=== PATIENT | male | born 1930 | race Caucasian/White ===

== ENCOUNTER 2017-01-27 14:06 | Emergency (ER) | payer MEDICARE, OTHER ==
[~2017-01-27] VITALS: Ht 185.4 cm; Wt 72.9 kg
[~2017-01-27 14:06] MED LIST: ASPI81TA2 PO; BISA5TAB12 PO; CARB15DR82 BOTH EYES; CARB1TAB23 PO; CLOP75TA PO; DOCU-175 PO; GABA-338 PO; LISI20TA PO; METO25TA27 PO; MULT-933 PO; OXCA300T18 PO; POLY17PO6 PO; PRAV20TA4 PO; SENN-156 PO; VITA1TAB21 PO
[2017-01-27 14:10] VITALS: Ht 185.4 cm; Wt 72.9 kg
--- OUTSIDE RECORDS SUMMARY | 2017-01-27 14:10 | XMS REPORT | Continuity of Care Document ---
Author Author [facility] Organization [facility] Address Unknown Phone Unavailable Support Name Relationship Address Phone DAO BAIN DO Caregiver [address] [place] [phone] MARAL COLLADO MD Caregiver [address] [place] [address] [place] [address] MARLO QUIROGA MD Caregiver [address] [place] [address] [place] [phone] CARLOS MCLEAN Next Of Kin [address] [place] [address] Insurance Providers Payer Name Policy Number Subscriber Name Relationship Medicare [id number] Dm Mclean 17 Self [employer] [id number] Dm Mclean 18 Self Advance Directives Directive Response Recorded Date/Time Advanced Directives Type None 01/20/15 6:10am Ordered Resuscitation Status Do Not Resuscitate 01/20/15 10:41am Resuscitation Documents on File N UNSURE 01/20/15 6:33am Chief Complaint and Reason for Visit Chief Complaint NAUSEA/VOMITING Reason for Visit Nausea & vomiting Parkinson disease Chronic back pain Total bilirubin, elevated Intractable nausea and vomiting Gait instability HTN (hypertension) CAD (coronary artery disease) Dyslipidemia Constipation Problems Medical Problems Problem Onset Date Status Nausea & vomiting Unknown Active Headache Unknown Active Nausea & vomiting Unknown Active Nausea & vomiting Unknown Active Parkinson disease Unknown Active Chronic back pain Unknown Active Total bilirubin, elevated Unknown Active Intractable nausea and vomiting Unknown Active Gait instability Unknown Active HTN (hypertension) Unknown Active CAD (coronary artery disease) Unknown Active Dyslipidemia Unknown Active Constipation Unknown Active Medications Medication Dose Route Sig Days/Qty Instructions Order Date Discontinued Date Status Hydralazine Hcl 25 Mg PO DAILY 07/16/09 Active Carbidopa/Levodopa 1 Tab.sa PO THREE TIMES A DAY 07/16/09 Active Aspirin 81 Mg PO DAILY 07/16/09 Active Metoprolol Succinate 12.5 Mg PO DAILY 07/16/09 Active Pravastatin Sodium 40 Mg PO BEDTIME 07/16/09 Active Ondansetron 4 Mg PO Q6H/0300,0900,1500,2100 PRN NAUSEA &/OR VOMITING 15 Qty Oral disintegrating tablet 01/18/15 Active Polyethylene Glycol 3350 17 Gm PO DAILY For CONSTIPATION 30 Days Active Scopolamine 1 Removal TD Q3D 5 Qty 01/21/15 Active Ondansetron HCl 4 Mg PO Every 6 Hours PRN NAUSEA 15 Qty 01/21/15 Active Social History Social History Problem Response Recorded Date/Time Hx Alcohol Use No 01/20/2015 12:43am Has the pt used tobacco in the last 12 months No 01/20/2015 6:34am Tobacco Usage none 01/20/2015 10:58am Query Response Start Date Stop Date Smoking Status Never smoker Hospital Discharge Instructions Instructions: Care Instructions: Reason for Hospitalization: Intractable nausea and vomitting I was in the hospital because (patient own words): "NAUSEA, HEADACHE, AND CHILLS" Discharge Diet: [place] diet-increase as able Discharge Activity: As tolerated Follow Up Appointments: FOLLOW UP WITH DR. QUIROGA IN HIS OFFICE ON 02/05/2015 AT 8:30 AM TO CHECK CMP. Patient Instructions: Remove Scoplamine patch on - continue to use only if increased nausea. Benifiber daily to help stools Miralax daily to help stools - hold with loose stool Condition at time of discharge: Good - Your incisions have been covered with Steri-Strips (tape). Leave the Steri-Strips in place until they fall off on their own. - You may shower - no tub baths or swimming for 2 weeks. Notify Physician If: - Your pain is not adequately controlled. - You have persistent nausea or vomiting for more than 24 hours. - You have a fever over 101.5 degrees. - You develop redness, swelling, increasing pain, excessive bleeding, or excessive/foul smelling drainage at your incision site. - You have difficulty breathing. During office hours, call [phone]. After hours, please call [facility] at [phone] and have the card game operator page Dr. Arvizu or the covering surgeon. *In the event of an emergency, seek medical care at the nearest emergency room.* Condition at time of discharge: Good Plan of Care Discharge Date 01/21/15 1:55pm Disposition 01 DISCHARGED HOME, SELF-CARE Instructions/Education Provided Nausea and Vomiting-Adult Prescriptions See Medications Section Functional Status Query Response Date Recorded Physical Hygiene Self January 20, 2015 12:43am Disabilities None January 20, 2015 6:10am Devices Used None January 20, 2015 6:10am Dressing Self January 20, 2015 12:43am Ambulation Self January 20, 2015 12:43am Diet Self January 20, 2015 12:43am Mental Status Alert Oriented January 20, 2015 5:37am Disabilities None January 20, 2015 6:10am Devices Used None January 20, 2015 6:10am Physical Hygiene Self January 20, 2015 12:43am Dressing Self January 20, 2015 12:43am Ambulation Self January 20, 2015 12:43am Diet Self January 20, 2015 12:43am Allergies, Adverse Reactions, Alerts Allergen Type Severity Reaction Status Last Updated warfarin sodium Allergy Unknown NAUSEA Active 01/19/15 Immunizations Name Given Type Hx Influenza Vaccination Y AUGUST 2014 Historical Hx Pneumococcal Vaccination Y "SEVERAL YEARS AGO" Historical Hx Influenza Vaccination Y AUGUST 2014 Historical Vital Signs Acute Vital Signs Vital Response Date/Time Temperature (Fahrenheit) 97.1 deg F (96.8 - 99.1) Temperature (Calculated Celsius) 36.38529 degrees C (36.0 - 37.3) Pulse Rate (adult) 43 bpm (60 - 100) Height 6 ft 1 in Weight 165 lb Body Mass Index 21.0 kg/m^2 Results Test Source Date Result Interp. Ref. Range Comments Alanine Aminotransferase (ALT/SGPT) January 20, 2015 1:05am 28 U/L N 21- 72 Albumin January 20, 2015 1:05am 3.8 G/DL N 3.5-5.0 Albumin/Globulin Ratio January 20, 2015 1:05am 1.4 RATIO N 1.1-2.2 Alkaline Phosphatase January 20, 2015 1:05am 63 U/L N 38-126 Amylase Level January 20, 2015 1:05am 36 U/L N 30-110 Anion Gap January 21, 2015 5:16am 6 MEQ/L N 5-15 Aspartate Amino Transf (AST/SGOT) January 20, 2015 1:05am 10 U/L L 17-59 BUN/Creatinine Ratio January 21, 2015 5:16am 9 RATIO N 6-26 Basophils # (Auto) January 21, 2015 5:16am 0.0 T/MM3 N 0-0.2 Basophils (%) (Auto) January 21, 2015 5:16am 0.2 % N 0-2 Blood Urea Nitrogen January 21, 2015 5:16am 8.0 MG/DL L 9-20 Calcium Level January 21, 2015 5:16am 8.2 MG/DL L 8.4-10.2 Calculated Osmolality January 21, 2015 5:16am 268 MOSM/KG N 261-280 Carbon Dioxide Level January 21, 2015 5:16am 28 MEQ/L N 22-30 Chemistry Specimen Hemolysis January 21, 2015 5:16am < 15 0-25 0-25: No Hemolysis.26-70: Slight Hemolysis - can falsely elevate K and Urine Protein. 71-285: Moderate Hemolysis - can falsely elevate K, Troponin I, CA 19-9, PTH, CSF GLucose, and Urine Protein, and can falsely decrease Phenytoin. 286-999: Gross Hemolysis - can falsely elevate K, Troponin I, CA 19-9, PTH, CSF Glucose, and Urine Protine, and can falsely decrease Phenytoin. Recommend specimen recollection. Chloride Level January 21, 2015 5:16am 107 MEQ/L DN 98-107 Creatinine January 21, 2015 5:16am 0.9 MG/DL N 0.8-1.5 Eosinophils # (Auto) January 21, 2015 5:16am 0.1 T/MM3 N 0-0.5 Eosinophils (%) (Auto) January 21, 2015 5:16am 1.2 % N 0-4 Globulin January 20, 2015 1:05am 2.7 G/DL N 2.4-3.6 Glomerular Filtration Rate Calc January 21, 2015 5:16am 80 - Glucose Level January 21, 2015 5:16am 84 MG/DL N 75-110 Hematocrit January 21, 2015 5:16am 32.8 % L 41-53 Hemoglobin January 21, 2015 5:16am 11.6 GM/DL DL 13.5-17.5 Icterus Index January 21, 2015 5:16am < 2 0-7 Immature Granulocyte # (Auto) January 21, 2015 5:16am 0.01 T/MM3 N 0.00- 0.03 Immature Granulocyte % (Auto) January 21, 2015 5:16am 0.2 % N 0.0-0.5 Lab Scanned Report January 11, 2011 10:43am LAB TEST FORM REQUEST [id number] - Lipase January 20, 2015 1:05am 45 U/L N 23-300 Lymphocytes # (Auto) January 21, 2015 5:16am 1.9 T/MM3 N 1-4.8 Lymphocytes (%) (Auto) January 21, 2015 5:16am 31.9 % N 23-45 Magnesium Level January 21, 2015 5:16am 1.8 MG/DL N 1.6-2.3 Mean Corpuscular Hemoglobin January 21, 2015 5:16am 31.6 UUG N 26-34 Mean Corpuscular Hemoglobin Concent January 21, 2015 5:16am 35.4 GM/DL N 31-37 Mean Corpuscular Volume January 21, 2015 5:16am 89.4 UM3 N 80-100 Mean Platelet Volume January 21, 2015 5:16am 9.8 UM3 N 9.4-12.4 Monocytes # (Auto) January 21, 2015 5:16am 0.6 T/MM3 N 0-0.8 Monocytes (%) (Auto) January 21, 2015 5:16am 10.5 % H 0-9.0 Neutrophils # (Auto) January 21, 2015 5:16am 3.4 T/MM3 N 1.8-7.7 Neutrophils (%) (Auto) January 21, 2015 5:16am 56.0 % N 33-66 Platelet Count January 21, 2015 5:16am 198 T/MM3 N 130-400 Potassium Level January 21, 2015 5:16am 3.4 MEQ/L L 3.6-5 Prealbumin January 20, 2015 1:05am 15.3 MG/DL L 17.6-36.0 COMMENT may use blood in lab Prothromb Time International Ratio January 18, 2015 4:13pm 1.19 H 0.81- 1.09 THERAPUTIC RANGE=2.00-3.00 FOR ANTI-THROMBOSIS THERAPUTIC RANGE=2.50- 3.50 FOR IMPLANTED VALVE RDW Standard Deviation January 21, 2015 5:16am 39.3 FL N 36.9-50.2 Red Blood Count January 21, 2015 5:16am 3.67 M/MM3 L 4.50-5.90 Sodium Level January 21, 2015 5:16am 141 MEQ/L N 134-144 Thyroid Stimulating Hormone (TSH) January 20, 2015 1:05am 0.66 MIU/L N 0.47-4.68 COMMENT may use blood in lab Total Bilirubin January 20, 2015 1:05am 2.70 MG/DL H 0.20-1.30 Total Protein January 20, 2015 1:05am 6.5 G/DL N 6.3-8.2 Troponin I January 20, 2015 1:05am < 0.012 ng/ml 0-0.12 Turbidity January 21, 2015 5:16am < 20 0-20 Urinalysis Comment January 20, 2015 3:17am Microscopic not ind. - Has specimen been collected/obtained? Y Urine Bilirubin January 20, 2015 3:17am Negative - Has specimen been collected/obtained? Y Urine Blood January 20, 2015 3:17am Negative - Has specimen been collected/obtained? Y Urine Collection Type January 20, 2015 3:17am Cleancatch-midstream - Has specimen been collected/obtained? Y Urine Color January 20, 2015 3:17am Yellow - Has specimen been collected/obtained? Y Urine Glucose (UA) January 20, 2015 3:17am Negative - Has specimen been collected/obtained? Y Urine Ketones January 20, 2015 3:17am Trace H - Has specimen been collected/obtained? Y Urine Leukocyte Esterase January 20, 2015 3:17am Negative - Has specimen been collected/obtained? Y Urine Nitrite January 20, 2015 3:17am Negative - Has specimen been collected/obtained? Y Urine Protein January 20, 2015 3:17am Negative - Has specimen been collected/obtained? Y Urine Specific [place] January 20, 2015 3:17am 1.025 - Has specimen been collected/obtained? Y Urine Turbidity January 20, 2015 3:17am Clear - Has specimen been collected/obtained? Y Urine Urobilinogen January 20, 2015 3:17am 1.0 EU/DL - Has specimen been collected/obtained? Y Urine pH January 20, 2015 3:17am 6.0 - Has specimen been collected/ obtained? Y White Blood Count January 21, 2015 5:16am 6.0 T/MM3 N 4.5-11.0 Name: DM MCLEAN Unit #: [id number] : [id number] Sex: M Loc / Svc: SRG DOS: 01/19/15 Signed Report #: [id number] DIAGNOSTIC IMAGING REPORT TYPE OF EXAM: KUB W/UPRIGHT Dictated By: ALLIE YANEZ MD Indication: ITS.REASON: Nausea and vomiting KUB W/UPRIGHT: Comparison: None Findings: The visualized lung bases are clear. Implanted electrode stimulator leads seen projecting over the spine. Poststernotomy changes also noted. The bowel gas pattern is nonobstructive and nonspecific. Mild stool in the colon. Some degenerative changes in the spine and hips. No free air identified. Impression: Nonobstructive nonspecific bowel gas pattern. . Procedures No known history of procedures. Encounters Encounter Location Date/Time Admitted Inpatient [facility] 01/20/15 5:20am Departed Emergency Room [facility] 01/18/15 3:09pm Recent Diagnosis Nausea & vomiting Parkinson disease Chronic back pain Total bilirubin, elevated Intractable nausea and vomiting Gait instability HTN (hypertension) CAD (coronary artery disease) Dyslipidemia Constipation
--- OUTSIDE RECORDS SUMMARY | 2017-01-27 14:12 | XMS REPORT | Continuity of Care Document ---
Author Author [facility] Organization [facility] Address Unknown Phone Unavailable Support Name Relationship Address Phone DAO BAIN Caregiver [facility] [address] [place] [address] MARLO QUIROGA MD Caregiver [address] [place] [address] [place] [phone] CARLOS MCLEAN Next Of Kin [address] [place] [address] Insurance Providers Payer Name Policy Number Subscriber Name Relationship Medicare [id number] Dm Mclean 17 Self [employer] [place] [id number] Dm Mclean 18 Self Advance Directives Directive Response Recorded Date/Time Advanced Directives Type None 01/25/15 5:34am Chief Complaint and Reason for Visit Chief Complaint Nausea,Vomiting,Diarrhea Reason for Visit Nausea & vomiting Problems Medical Problems Problem Onset Date Status [...] Active Dyslipidemia Unknown Active Constipation Unknown Active Low back pain Unknown Active Low back pain Unknown Active Medications Medication Dose Route Sig Days/Qty Instructions Order Date Discontinued Date Status Aspirin 81 Mg PO DAILY 07/16/09 Active Metoprolol Succinate 12.5 Mg PO DAILY 07/16/09 Active Pravastatin Sodium 40 Mg PO BEDTIME 07/16/09 Active Scopolamine 1 Removal TD Q3D 5 Qty 01/21/15 Active Social History Social History Problem Response Recorded Date/Time Chewing Tobacco Status No 01/25/2015 6:00am Hx Substance Use No 01/25/2015 6:00am Hx Alcohol Use No 01/25/2015 6:00am Has the pt used tobacco in the last 12 months No 01/20/2015 6:34am Tobacco Usage none 01/20/2015 10:58am Query Response Start Date Stop Date Smoking Status Never smoker Hospital Discharge Instructions Instructions: Care Instructions: Reason for Hospitalization: Intractable nausea and vomitting I was in the hospital because (patient own words): "NAUSEA, HEADACHE, AND CHILLS" Discharge Diet: [place] diet-increase as able Discharge Activity: As tolerated Follow Up Appointments: FOLLOW UP WITH DR. QUIROGA IN HIS OFFICE ON 02/05/2015 AT 8:30 AM TO CHECK CMP. Patient Instructions: Remove Scoplamine patch on - continue to use only if increased nausea. Benifiber daily to help stools Miralax daily to help stools - hold with loose stool Condition at time of discharge: Good Notify Physician If: worsening SOB, fever > 101, worsening mental status General Information: n/a Condition at time of discharge: Good Pass 7 (lbs) Weight Ounces: 8.11 (oz) Dismissal Weight: 3.195 Bilirubin Level: 7.1 Plan of Care Discharge Date 01/21/15 1:55pm Disposition 02 TO OBS [facility] [place] Condition at Discharge Improved Instructions/Education Provided Nausea and Vomiting-Adult Prescriptions See Medications Section Referrals MARLO QUIROGA MD Functional Status Query Response Date Recorded Physical Hygiene Self January 25, 2015 6:00am Disabilities Visual January 25, 2015 6:00am Devices Used Glasses January 25, 2015 6:00am Dressing Self January 25, 2015 6:00am Ambulation Self January 25, 2015 6:00am Diet Self January 25, 2015 6:00am Mental Status Alert Oriented January 25, 2015 6:00am Disabilities Visual January 25, 2015 6:00am Devices Used Glasses January 25, 2015 6:00am Physical Hygiene Self January 25, 2015 6:00am Dressing Self January 25, 2015 6:00am Ambulation Self January 25, 2015 6:00am Diet Self January 25, 2015 6:00am Allergies, Adverse Reactions, Alerts Allergen Type Severity Reaction Status Last Updated warfarin sodium Allergy Unknown NAUSEA Active 01/25/15 Immunizations Name Given Type Hx Influenza Vaccination Y AUGUST 2014 Historical Hx Pneumococcal Vaccination Y "SEVERAL YEARS AGO" Historical Hx Influenza Vaccination Y AUGUST 2014 Historical Vital Signs Acute Vital Signs Vital Response Date/Time Temperature (Fahrenheit) 97.0 deg F (96.8 - 99.1) Temperature (Calculated Celsius) 36.69004 degrees C (36.0 - 37.3) Pulse Rate (adult) 57 bpm (60 - 100) Respiratory Rate 16 breaths/min (10 - 20) O2 Sat by Pulse Oximetry 95 % (90 - 100) Blood Pressure 144/67 mm Hg Height 6 ft 1 in Weight 166 lb Body Mass Index 21.0 kg/m^2 Results Test Source Date Result Interp. Ref. Range Comments Alanine Aminotransferase (ALT/SGPT) January 25, 2015 7:23am 33 U/L N 21- 72 Albumin January 25, 2015 7:23am 3.4 G/DL L 3.5-5.0 Albumin/Globulin Ratio January 25, 2015 7:23am 1.3 RATIO N 1.1-2.2 Alkaline Phosphatase January 25, 2015 7:23am 64 U/L N 38-126 Amylase Level January 20, 2015 1:05am 36 U/L N 30-110 Anion Gap January 25, 2015 7:23am 12 MEQ/L N 5-15 Aspartate Amino Transf (AST/SGOT) January 25, 2015 7:23am 13 U/L L 17-59 BUN/Creatinine Ratio January 25, 2015 7:23am 10 RATIO N 6-26 Basophils # (Auto) January 25, 2015 7:23am 0.0 T/MM3 N 0-0.2 Basophils (%) (Auto) January 25, 2015 7:23am 0.3 % N 0-2 Blood Urea Nitrogen January 25, 2015 7:23am 8.0 MG/DL L 9-20 Calcium Level January 25, 2015 7:23am 8.9 MG/DL N 8.4-10.2 Calculated Osmolality January 25, 2015 7:23am 277 MOSM/KG N 261-280 Carbon Dioxide Level January 25, 2015 7:23am 28 MEQ/L N 22-30 Chemistry Specimen Hemolysis January 25, 2015 7:23am < 15 0-25 0-25: No Hemolysis.26-70: Slight [...] Phenytoin. Recommend specimen recollection. Chloride Level January 25, 2015 7:23am 105 MEQ/L N 98-107 Creatinine January 25, 2015 7:23am 0.8 MG/DL N 0.8-1.5 Eosinophils # (Auto) January 25, 2015 7:23am 0.1 T/MM3 N 0-0.5 Eosinophils (%) (Auto) January 25, 2015 7:23am 1.7 % N 0-4 Globulin January 25, 2015 7:23am 2.7 G/DL N 2.4-3.6 Glomerular Filtration Rate Calc January 25, 2015 7:23am 92 - Glucose Level January 25, 2015 7:23am 92 MG/DL N 75-110 Hematocrit January 25, 2015 7:23am 38.2 % L 41-53 Hemoglobin January 25, 2015 7:23am 13.5 GM/DL N 13.5-17.5 Icterus Index January 25, 2015 7:23am < 2 0-7 Immature Granulocyte # (Auto) January 25, 2015 7:23am 0.02 T/MM3 N 0.00- 0.03 Immature Granulocyte % (Auto) January 25, 2015 7:23am 0.3 % N 0.0-0.5 Lab Scanned Report January 11, 2011 10:43am LAB TEST FORM REQUEST [id number] - Lipase January 20, 2015 1:05am 45 U/L N 23-300 Lymphocytes # (Auto) January 25, 2015 7:23am 1.9 T/MM3 N 1-4.8 Lymphocytes (%) (Auto) January 25, 2015 7:23am 26.7 % N 23-45 Magnesium Level January 21, 2015 5:16am 1.8 MG/DL N 1.6-2.3 Mean Corpuscular Hemoglobin January 25, 2015 7:23am 32.1 UUG N 26-34 Mean Corpuscular Hemoglobin Concent January 25, 2015 7:23am 35.3 GM/DL N 31-37 Mean Corpuscular Volume January 25, 2015 7:23am 90.7 UM3 N 80-100 Mean Platelet Volume January 25, 2015 7:23am 9.0 UM3 L 9.4-12.4 Monocytes # (Auto) January 25, 2015 7:23am 0.7 T/MM3 N 0-0.8 Monocytes (%) (Auto) January 25, 2015 7:23am 9.5 % H 0-9.0 Neutrophils # (Auto) January 25, 2015 7:23am 4.5 T/MM3 N 1.8-7.7 Neutrophils (%) (Auto) January 25, 2015 7:23am 61.5 % N 33-66 Platelet Count January 25, 2015 7:23am 228 T/MM3 N 130-400 Potassium Level January 25, 2015 7:23am 3.9 MEQ/L N 3.6-5 Prealbumin January 20, 2015 1:05am 15.3 MG/DL L 17.6-36.0 COMMENT may use blood in lab Prothromb Time International Ratio January 18, 2015 4:13pm 1.19 H 0.81- 1.09 THERAPUTIC RANGE=2.00-3.00 FOR ANTI-THROMBOSIS THERAPUTIC RANGE=2.50- 3.50 FOR IMPLANTED VALVE RDW Standard Deviation January 25, 2015 7:23am 42.4 FL N 36.9-50.2 Red Blood Count January 25, 2015 7:23am 4.21 M/MM3 L 4.50-5.90 Sodium Level January 25, 2015 7:23am 145 MEQ/L H 134-144 Thyroid Stimulating Hormone (TSH) January 20, 2015 1:05am 0.66 MIU/L N 0.47-4.68 COMMENT may use blood in lab Total Bilirubin January 25, 2015 7:23am 1.70 MG/DL H 0.20-1.30 Total Protein January 25, 2015 7:23am 6.1 G/DL L 6.3-8.2 Troponin I January 20, 2015 1:05am < 0.012 ng/ml 0-0.12 Turbidity January 25, 2015 7:23am < 20 0-20 Urinalysis Comment January 25, 2015 5:47am Microscopic not ind. - Has specimen been collected/obtained? Y Urine Bilirubin January 25, 2015 5:47am Negative - Has specimen been collected/obtained? Y Urine Blood January 25, 2015 5:47am Negative - Has specimen been collected/obtained? Y Urine Collection Type January 25, 2015 5:47am Cleancatch-midstream - Has specimen been collected/obtained? Y Urine Color January 25, 2015 5:47am Yellow - Has specimen been collected/obtained? Y Urine Glucose (UA) January 25, 2015 5:47am Negative - Has specimen been collected/obtained? Y Urine Ketones January 25, 2015 5:47am Negative - Has specimen been collected/obtained? Y Urine Leukocyte Esterase January 25, 2015 5:47am Negative - Has specimen been collected/obtained? Y Urine Nitrite January 25, 2015 5:47am Negative - Has specimen been collected/obtained? Y Urine Protein January 25, 2015 5:47am Negative - Has specimen been collected/obtained? Y Urine Specific [place] January 25, 2015 5:47am 1.010 L - Has specimen been collected/obtained? Y Urine Turbidity January 25, 2015 5:47am Clear - Has specimen been collected/obtained? Y Urine Urobilinogen January 25, 2015 5:47am 0.2 EU/DL - Has specimen been collected/obtained? Y Urine pH January 25, 2015 5:47am 6.5 - Has specimen been collected/ obtained? Y Vitamin B12 Level January 20, 2015 1:05am 527 PG/ML N 239-931 COMMENT may use blood in lab White Blood Count January 25, 2015 7:23am 7.3 T/MM3 N 4.5-11.0 Name: DM MCLEAN Unit #: [id number] : [id number] Sex: M Loc / Svc: SRG DOS: 01/19/15 Signed Report #: [id number] DIAGNOSTIC IMAGING REPORT TYPE OF EXAM: KUB [...] Nonobstructive nonspecific bowel gas pattern. . Procedures Procedure Status Date Provider(s) ROUTINE VENIPUNCTURE completed 01/18/15 COMPREHEN METABOLIC PANEL completed 01/18/15 URINALYSIS AUTO W/O SCOPE completed 01/18/15 ASSAY OF AMYLASE completed 01/18/15 ASSAY OF LIPASE completed 01/18/15 COMPLETE CBC W/AUTO DIFF WBC completed 01/18/15 PROTHROMBIN TIME completed 01/18/15 EMERGENCY DEPT VISIT completed 01/18/15 Encounters Encounter Location Date/Time Departed Emergency Room [facility] 01/25/15 5:34am Discharged Inpatient [facility] 01/20/15 5:20am Departed Emergency Room [facility] 01/18/15 3:09pm Recent Diagnosis
--- OUTSIDE RECORDS SUMMARY | 2017-01-27 14:12 | XMS REPORT | Referral Summary ---
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 Role Phone Luly Jane Primary Care Physician [phone] Encounter [facility] [id number] Date(s): 12/02/16 - 12/02/16 [facility] [address] [place] [address] Discharge Diagnosis: Lower abdominal pain Discharge Diagnosis: Chronic low back pain Discharge Diagnosis: Constipation Discharge Diagnosis: CAD (coronary artery disease) Discharge Diagnosis: Abnormal weight loss Discharge Diagnosis: Ataxic gait Discharge Diagnosis: Parkinson's disease Discharge Diagnosis: Primary hypercholesterolemia Discharge Diagnosis: Benign essential hypertension Discharge Diagnosis: Spinal stenosis, lumbar region, without neurogenic claudication Discharge Disposition: 01-Home or Self Care Attending Physician: Duncan Jane MD Admitting Physician: Duncan Jane MD Vital Signs Most recent to 1 oldest [Reference Range]: Temperature Tympanic 35.7 degC [36.6-38.1 degC] *LOW* (12/02/16 10:28 AM) Peripheral Pulse 64 bpm Rate [60-100 bpm] (12/02/16 10:28 AM) Blood Pressure 136/54 mmHg [90-140/60-90 mmHg] (12/02/16 10:28 AM) Problem List Condition Effective Dates Status Health Status Informant Acquired Active spondylolisthesis (disorder)(Confirmed ) Acquired Active spondylolisthesis(Co nfirmed) Acute Active bronchitis(Confirmed ) Acute Active sinusitis(Confirmed) Coronary heart Active disease(Confirmed) Benign essential Active hypertension(Confirm ed) benign prostatic Resolved hypertrophy(Confirme d) 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 d) Bladder Active problem(Confirmed) Broken Active leg(Confirmed) Cataracts(Confirmed) Active coronary artery Resolved disease(Confirmed) CAD (coronary artery Active disease)(Confirmed) Constipation(Confirm Active ed) Disc degeneration, Active lumbar(Confirmed) Diplopia(Confirmed) Active 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 ) Dysphagia(Confirmed) Active Essential Active hypertension(Confirm ed) Headaches(Confirmed) Active Hearing Active loss(Confirmed) Hip pain(Confirmed) Active High Active cholesterol(Confirme d) hyperlipidemia(Confi Resolved rmed) hypertension(Confirm Active ed) Low back pain Active (finding)(Confirmed) Lumbago(Confirmed) Active Left lumbar Active radiculopathy(Confir med) Right lumbar Active radiculopathy(Confir med) Lumbar Active spondylosis(Confirme d) Lumbosacral Active radiculopathy(Confir med) Lumbosacral Active spondylosis without myelopathy (disorder)(Confirmed ) Macular Active degeneration(Confirm ed) Memory Active problem(Confirmed) Nausea & Active vomiting(Confirmed) Osteoarthritis(Confi Active rmed) 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) Parkinson's Active disease(Confirmed) H/O coronary artery Active bypass surgery(Confirmed) Spinal stenosis, Active lumbar region, without neurogenic claudication(Confirm ed) Lumbar Active stenosis(Confirmed) Spondylolisthesis of Active lumbar region(Confirmed) 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(Confirmed ) Thoracic or Active lumbosacral neuritis or radiculitis, unspecified(Confirme d) Thoracic or Active lumbosacral neuritis or radiculitis(Confirme d) Allergies, Adverse Reactions, Alerts Substance Reaction Severity Status Warfarin Sodium Active Medications Aspir 81 81 mg, Oral, Daily, 0 Refill(s) Start Date: 04/10/14 Status: Ordered carbidopa-levodopa 25 mg-250 mg oral tablet 1 tabs, Oral, QID, # 360 tabs, 0 Refill(s), Pharmacy: [id number] Start Date: 10/11/16 Status: Ordered clopidogrel 75 mg oral tablet 75 mg 1 tabs, Oral, Daily, # 30 tabs, 1 Refill(s), Pharmacy: [facility], 1 tabs Oral Daily Start Date: 11/17/16 Status: Ordered Dulcolax Laxative 2 tabs, Oral, Daily, 0 Refill(s) Start Date: 06/10/16 Status: Ordered Dulcolax Laxative 5 mg oral delayed release tablet 2 tabs, Oral, Daily, 0 Refill(s) Start Date: 04/10/14 Status: Ordered lisinopril 10 mg oral tablet 10 mg 1 tabs, Oral, Daily, # 30 tabs, 1 Refill(s), Pharmacy: [facility], cancel lisinopril 20 mg, 1 tabs Oral Daily Start Date: 10/22/16 Status: Ordered MiraLax oral powder for reconstitution 17 g, Oral, Daily, 0 Refill(s) Start Date: 01/23/15 Status: Ordered OXcarbazepine 300 mg oral tablet 300 mg 1 tabs, Oral, BID, # 60 tabs, 0 Refill(s), Pharmacy: [facility], 1 tabs Oral BID Start Date: 04/06/16 Status: Ordered pravastatin 20 mg oral tablet 20 mg 1 tabs, Oral, Bedtime (once a day), 1/2 tab q day, # 30 tabs, 0 Refill(s) , Pharmacy: [id number] Start Date: 11/11/16 Status: Ordered Senna Plus 50 mg-8.6 mg oral tablet 1 tabs, Oral, BID, 0 Refill(s) Start Date: 01/15/16 Status: Ordered Results No data available for this section Immunizations Given and Recorded Vaccine Date Status Refusal Reason influenza virus vaccine, inactivated 08/03/16 Given influenza virus vaccine, inactivated 09/16/15 Given influenza virus vaccine, live 09/25/12 Given pneumococcal 13-valent conjugate vaccine 08/14/14 Given pneumococcal 23-polyvalent vaccine 02/23/99 Recorded tetanus-diphth toxoids (Td) adult/adol 05/25/10 Given tetanus-diphth toxoids (Td) adult/adol 10/28/99 Given zoster vaccine live 08/15/08 Given Procedures Procedure Date Related Diagnosis Body Site Left L4-5/L5-S1 Transforaminal 09/03/15 Right L4-5/L5-S1 Transforaminal 07/08/15 Right L4-5/L5-S1 Transforaminal 04/22/15 Insertion Neurostimulator Spine1 01/15/15 Spinal Stimulator Trial 12/31/14 Right L3-4/L4-5 Transforaminal 10/09/14 right l 3-4/l 4-5 tranforaminal 07/18/14 Right L3-4/L4-5 Transforaminal 04/17/14 Right L3-4/L4-5 Transforaminal 02/05/14 Right L3-4/L4-5 Transforaminal 11/27/13 LT L4-5 Transforaminal 01/20/12 Bilateral L4-5 Transforaminal 12/01/11 Colonoscopy 2008 Colonoscopy 2002 Colonoscopy 1997 CABG2 1996 Colonoscopy 1992 cataract extraction Cystoscopy Hospitalized for Left Tib/Fib FX Prostate Biopsy TURP 1auto-populated from documented surgical case 2of 3 vessels Social History Social History Type Response Smoking Status Never smoker Assessment and Plan Extracted from: Title: Ambulatory Patient Education Author: Duncan Jane MD Date: 12/02 Emergency Medicine Abdominal Pain, Adult Many things can cause abdominal pain. Usually, abdominal pain is not caused by a disease and will improve without treatment. It can often be observed and treated at home. Your health care provider will do a physical exam and possibly order blood tests and X-rays to help determine the seriousness of your pain. However, in many cases, more time must pass before a clear cause of the pain can be found. Before that point, your health care provider may not know if you need more testing or further treatment. HOME CARE INSTRUCTIONS Monitor your abdominal pain for any changes. The following actions may help to alleviate any discomfort you are experiencing: Only take egde-ois-ihqfbsv or prescription medicines as directed by your health care provider. Do not take laxatives unless directed to do so by your health care provider. Try a clear liquid diet (broth, tea, or water) as directed by your health care provider. Slowly move to a bland diet as tolerated. SEEK MEDICAL CARE IF: You have unexplained abdominal pain. You have abdominal pain associated with nausea or diarrhea. You have pain when you urinate or have a bowel movement. You experience abdominal pain that wakes you in the night. You have abdominal pain that is worsened or improved by eating food. You have abdominal pain that is worsened with eating fatty foods. You have a fever. SEEK IMMEDIATE MEDICAL CARE IF: Your pain does not go away within 2 hours. You keep throwing up (vomiting). Your pain is felt only in portions of the abdomen, such as the right side or the left lower portion of the abdomen. You pass bloody or black tarry stools. MAKE SURE YOU: Understand these instructions. Will watch your condition. Will get help right away if you are not doing well or get worse. This information is not intended to replace advice given to you by your health care provider. Make sure you discuss any questions you have with your health care provider. Document Released: 08/03/2006 Document Revised: 11/14/2015 Document Reviewed: [employer] Interactive Patient Education 2016 [employer] No follow up information was provided. Extracted from: Title: several problems Author: Duncan Jane MD Date: 12/02/16 Impression and Plan Diagnosis Chronic low back pain (NAM50-WZ M54.5, Discharge, Medical). CAD (coronary artery disease) (YYS02-ND I25.10, Discharge, Medical). Spinal stenosis, lumbar region, without neurogenic claudication (KGQ94-BZ M48.06 , Discharge, Medical). Parkinson's disease (QZZ24-IW G20, Discharge, Medical). Benign essential hypertension (UQX80-VX I10, Discharge, Medical). Primary hypercholesterolemia (YHS05-KB E78.00, Discharge, Medical). Abnormal weight loss (VJU02-RL R63.4, Discharge, Medical). Ataxic gait (VCM82-OV R26.0, Discharge, Medical). Lower abdominal pain (RKH03-OX R10.30, Discharge, Medical). Constipation (HQO27-IQ K59.00, Discharge, Medical). Plan: 1) Drink more Ensure daily. 2) Eat more of any food that you like. 3) Take a full pill of Pravastatin and a full pill of Clopidogrel every day. 4) You may stop the Gabapentin if it isn't needed for pain. 5) No other medication changes made. 6) See me for a physical in about 3 months, and as needed. 7) Use your walker all the time.. Orders Orders (Selected) Outpatient Orders Ordered Office Visit Level 4 Est 43268: . 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 End of Orders ."
--- OUTSIDE RECORDS SUMMARY | 2017-01-27 14:12 | XMS REPORT | Continuity of Care Document ---
Author Author [facility] Organization [facility] Address Unknown Phone Unavailable Support Name Relationship Address Phone MARLO QUIROGA MD Caregiver [address] [phone] SISI DE JESUS MD Caregiver [address] [place] [phone] CARLOS MCLEAN Next Of Kin [address] [facility] [place] [address] Insurance Providers Payer Name Policy Number Subscriber Name Relationship Medicare [id number] Dm Mclean 17 Self [place] [id number] Dm Mclean 17 Self Advance Directives Directive Response Recorded Date/Time Advanced Directives Type DNR Documentation 01/18/15 4:16pm Problems Medical Problems Problem Onset Date Status Nausea & vomiting Unknown Active Headache Unknown Active Nausea & vomiting Unknown Active Medications Medication Dose Route Sig [...] 15 Qty Oral disintegrating tablet 01/18/15 Active Social History Social History Problem Response Recorded Date/Time Hx Alcohol Use No 01/18/2015 4:16pm Query Response Start Date Stop Date Smoking Status Never smoker Hospital Discharge Instructions No hospital discharge instructions. Plan of Care No plan of care. Functional Status Query Response Date Recorded Physical Hygiene Self January 18, 2015 4:16pm Disabilities Visual January 18, 2015 4:16pm Devices Used Glasses January 18, 2015 4:16pm Dressing Self January 18, 2015 4:16pm Ambulation Self January 18, 2015 4:16pm Diet Self January 18, 2015 4:16pm Mental Status Alert Oriented January 18, 2015 6:21pm Disabilities Visual January 18, 2015 4:16pm Devices Used Glasses January 18, 2015 4:16pm Physical Hygiene Self January 18, 2015 4:16pm Dressing Self January 18, 2015 4:16pm Ambulation Self January 18, 2015 4:16pm Diet Self January 18, 2015 4:16pm Allergies, Adverse Reactions, Alerts Allergen Type Severity Reaction Status Last Updated warfarin sodium Allergy Unknown NAUSEA Active 01/18/15 Immunizations Name Given Type Hx Influenza Vaccination Y 2013 Historical Hx Pneumococcal Vaccination Y UNKNOWN DATE Historical Hx Influenza Vaccination Y 2013 Historical Vital Signs Acute Vital Signs Vital Response Date/Time Temperature (Fahrenheit) 97.8 deg F (96.8 - 99.1) Temperature (Calculated Celsius) 36.51140 degrees C (36.0 - 37.3) Pulse Rate (adult) 56 bpm (60 - 100) Respiratory Rate 16 breaths/min (10 - 20) O2 Sat by Pulse Oximetry 99 % (90 - 100) Blood Pressure 136/62 mm Hg Height 6 ft 1 in Weight 167 lb Body Mass Index 22.0 kg/m^2 Results Test Source Date Result Interp. Ref. Range Comments Urinalysis Comment January 18, 2015 4:59pm Microscopic not ind. - Has specimen been collected/obtained? Y Urine Blood January 18, 2015 4:59pm Negative - Has specimen been collected/obtained? Y Urine Bilirubin January 18, 2015 4:59pm Negative - Has specimen been collected/obtained? Y Urine Urobilinogen January 18, 2015 4:59pm 1.0 EU/DL - Has specimen been collected/obtained? Y Urine Ketones January 18, 2015 4:59pm 3+ H - Has specimen been collected/ obtained? Y Urine Glucose (UA) January 18, 2015 4:59pm Negative - Has specimen been collected/obtained? Y Urine Protein January 18, 2015 4:59pm Negative - Has specimen been collected/obtained? Y Urine Nitrite January 18, 2015 4:59pm Negative - Has specimen been collected/obtained? Y Urine Leukocyte Esterase January 18, 2015 4:59pm Negative - Has specimen been collected/obtained? Y Urine pH January 18, 2015 4:59pm 7.0 - Has specimen been collected/ obtained? Y Urine Specific [place] January 18, 2015 4:59pm 1.025 - Has specimen been collected/obtained? Y Urine Turbidity January 18, 2015 4:59pm Sl cloudy - Has specimen been collected/obtained? Y Urine Color January 18, 2015 4:59pm Yellow - Has specimen been collected/obtained? Y Urine Collection Type January 18, 2015 4:59pm Voided-not cc-midstr - Has specimen been collected/obtained? Y Lipase January 18, 2015 4:13pm 47 U/L N 23-300 Amylase Level January 18, 2015 4:13pm 30 U/L N 30-110 Alanine Aminotransferase (ALT/SGPT) January 18, 2015 4:13pm 27 U/L N 21- 72 Aspartate Amino Transf (AST/SGOT) January 18, 2015 4:13pm 11 U/L L 17-59 Albumin/Globulin Ratio January 18, 2015 4:13pm 1.5 RATIO N 1.1-2.2 Globulin January 18, 2015 4:13pm 2.6 G/DL N 2.4-3.6 Albumin January 18, 2015 4:13pm 3.9 G/DL N 3.5-5.0 Total Protein January 18, 2015 4:13pm 6.5 G/DL N 6.3-8.2 Alkaline Phosphatase January 18, 2015 4:13pm 71 U/L N 38-126 Total Bilirubin January 18, 2015 4:13pm 2.90 MG/DL H 0.20-1.30 Calcium Level January 18, 2015 4:13pm 9.2 MG/DL N 8.4-10.2 Calculated Osmolality January 18, 2015 4:13pm 270 MOSM/KG N 261-280 Glucose Level January 18, 2015 4:13pm 125 MG/DL H 75-110 Glomerular Filtration Rate Calc January 18, 2015 4:13pm 107 - BUN/Creatinine Ratio January 18, 2015 4:13pm 17 RATIO N 6-26 Creatinine January 18, 2015 4:13pm 0.7 MG/DL L 0.8-1.5 Blood Urea Nitrogen January 18, 2015 4:13pm 12.0 MG/DL N 9-20 Anion Gap January 18, 2015 4:13pm 13 MEQ/L N 5-15 Carbon Dioxide Level January 18, 2015 4:13pm 24 MEQ/L N 22-30 Chloride Level January 18, 2015 4:13pm 103 MEQ/L N 98-107 Potassium Level January 18, 2015 4:13pm 4.0 MEQ/L N 3.6-5 Sodium Level January 18, 2015 4:13pm 140 MEQ/L N 134-144 Turbidity January 18, 2015 4:13pm < 20 0-20 Chemistry Specimen Hemolysis January 18, 2015 4:13pm < 15 0-25 0-25: No Hemolysis.26-70: Slight [...] can falsely decrease Phenytoin. Recommend specimen recollection. Icterus Index January 18, 2015 4:13pm 2 N 0-7 Prothromb Time International Ratio January 18, 2015 4:13pm 1.19 H 0.81- 1.09 THERAPUTIC RANGE=2.00-3.00 FOR ANTI-THROMBOSIS THERAPUTIC RANGE=2.50- 3.50 FOR IMPLANTED VALVE Immature Granulocyte # (Auto) January 18, 2015 4:13pm 0.01 T/MM3 N 0.00- 0.03 Basophils # (Auto) January 18, 2015 4:13pm 0.0 T/MM3 N 0-0.2 Eosinophils # (Auto) January 18, 2015 4:13pm 0.0 T/MM3 N 0-0.5 Monocytes # (Auto) January 18, 2015 4:13pm 0.2 T/MM3 N 0-0.8 Lymphocytes # (Auto) January 18, 2015 4:13pm 0.7 T/MM3 L 1-4.8 Neutrophils # (Auto) January 18, 2015 4:13pm 5.0 T/MM3 N 1.8-7.7 Immature Granulocyte % (Auto) January 18, 2015 4:13pm 0.2 % N 0.0-0.5 Basophils (%) (Auto) January 18, 2015 4:13pm 0.2 % N 0-2 Eosinophils (%) (Auto) January 18, 2015 4:13pm 0.2 % N 0-4 Monocytes (%) (Auto) January 18, 2015 4:13pm 3.0 % N 0-9.0 Lymphocytes (%) (Auto) January 18, 2015 4:13pm 12.0 % L 23-45 Neutrophils (%) (Auto) January 18, 2015 4:13pm 84.4 % H 33-66 Mean Platelet Volume January 18, 2015 4:13pm 9.3 UM3 L 9.4-12.4 Platelet Count January 18, 2015 4:13pm 190 T/MM3 N 130-400 RDW Standard Deviation January 18, 2015 4:13pm 40.1 FL N 36.9-50.2 Mean Corpuscular Hemoglobin Concent January 18, 2015 4:13pm 35.2 GM/DL N 31-37 Mean Corpuscular Hemoglobin January 18, 2015 4:13pm 32.0 UUG N 26-34 Mean Corpuscular Volume January 18, 2015 4:13pm 91.0 UM3 N 80-100 Hematocrit January 18, 2015 4:13pm 38.4 % L 41-53 Hemoglobin January 18, 2015 4:13pm 13.5 GM/DL N 13.5-17.5 Red Blood Count January 18, 2015 4:13pm 4.22 M/MM3 L 4.50-5.90 White Blood Count January 18, 2015 4:13pm 5.9 T/MM3 N 4.5-11.0 Troponin I January 11, 2011 10:33am 0.000 ng/ml N 0-0.12 Lab Scanned Report January 11, 2011 10:43am LAB TEST FORM REQUEST [id number] - Procedures No known history of procedures. Encounters Encounter Location Date/Time Departed Emergency Room [facility] 01/18/15 3:09pm Recent Diagnosis
--- OUTSIDE RECORDS SUMMARY | 2017-01-27 14:13 | XMS REPORT | Continuity of Care Document ---
Author Author [facility] Organization [facility] Address Unknown Phone Unavailable Allergies Active Description Code Type Severity Reaction Onset Reported/Identified Relationship to Patient Clinical Status Yes Warfarin Sodium NKMA N/A N/A 04/10/2014 Medications Problems Procedures Results Encounters ACCT No. Visit Date/Time Discharge Status Pt. Type Provider Facility Loc./Unit Complaint [id number] 02/05/2014 12:20:00 02/05/2014 23 :59:59 CLS Outpatient [id number] 01/28/2014 14:06:00 01/28/2014 23 :59:59 CLS Outpatient [id number] 01/02/2014 08:17:00 01/02/2014 23 :59:59 CLS Outpatient [id number] 10/02/2013 07:23:00 10/02/2013 23 :59:59 CLS Outpatient
--- OUTSIDE RECORDS SUMMARY | 2017-01-27 14:14 | XMS REPORT | Referral Summary ---
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 Name Role Phone Luly Jane Primary Care Physician [phone] Encounter [facility] [id number] Date(s): 08/03/16 - 08/03/16 [facility] [address] [place] [address] Discharge Diagnosis: Need for influenza vaccination Discharge Diagnosis: CAD (coronary artery disease) Discharge Diagnosis: Benign essential hypertension Discharge Diagnosis: Parkinson's disease Discharge Diagnosis: Periodontal disease Discharge Diagnosis: Dental abscess Discharge Diagnosis: Lumbago Discharge Disposition: -Home or Self Care Attending Physician: Duncan Jane MD Admitting Physician: Duncan Jane MD Vital Signs Most recent to 1 oldest [Reference Range]: Temperature Tympanic 35.9 degC [36.6-38.1 degC] *LOW* (08/03/16 8:00 AM) Peripheral Pulse 60 bpm Rate [60-100 bpm] (08/03/16 8:00 AM) Blood Pressure 160/64 mmHg [90-140/60-90 mmHg] *HI* (08/03/16 8:00 AM) Problem List Condition Effective Dates Status Health Status Informant Abnormal weight Active loss(Confirmed) Acquired Active sensorineural hearing loss(Confirmed) Acquired Active spondylolisthesis (disorder)(Confirmed ) Acquired Active spondylolisthesis(Co nfirmed) Acute Active bronchitis(Confirmed ) Acute Active sinusitis(Confirmed) Benign essential Active hypertension(Confirm ed) benign prostatic Resolved hypertrophy(Confirme d) 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 d) Bladder Active problem(Confirmed) Broken Active leg(Confirmed) Cataracts(Confirmed) Active coronary artery Resolved disease(Confirmed) CAD (coronary artery Active disease)(Confirmed) Constipation(Confirm Active ed) Disc degeneration, Active lumbar(Confirmed) Diplopia(Confirmed) Active 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 ) Dysphagia(Confirmed) Active Headaches(Confirmed) Active Hearing Active loss(Confirmed) Hip pain(Confirmed) [...] disease (DJD) of hip(Confirmed) Parkinson's Active disease(Confirmed) Neuropathy, Active peripheral(Confirmed ) Retinal Active disease(Confirmed) Spinal stenosis, Active lumbar region, without neurogenic claudication(Confirm ed) Lumbar Active stenosis(Confirmed) Spondylolisthesis of Active lumbar region(Confirmed) 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(Confirmed ) Thoracic or Active lumbosacral neuritis or radiculitis, unspecified(Confirme d) Thoracic or Active lumbosacral neuritis or radiculitis(Confirme d) Allergies, Adverse Reactions, Alerts Substance Reaction Severity Status Warfarin Sodium Active Medications amoxicillin 500 mg oral capsule 500 mg 1 caps, Oral, TID, X 10 days, # 30 caps, 0 Refill(s), Pharmacy: [facility], 1 caps Oral TID,x10 days Start Date: 08/03/16 Stop Date: 08/13/16 Status: Ordered Aspir 81 81 mg, Oral, Daily, 0 Refill(s) Start Date: 04/10/14 Status: Ordered carbidopa-levodopa 25 mg-250 mg oral tablet 1 tabs, Oral, QID, # 360 tabs, 0 Refill(s), Pharmacy: [facility] Start Date: 07/26/16 Status: Ordered clopidogrel 75 mg oral tablet See Instructions, TAKE ONE TABLET BY MOUTH ONCE DAILY, # 30 tabs, 2 Refill(s), eRx: [facility], TAKE ONE TABLET BY MOUTH ONCE DAILY Start Date: 07/05/16 Status: Ordered Dulcolax Laxative 2 tabs, Oral, Daily, 0 Refill(s) Start Date: 06/10/16 Status: Ordered Dulcolax Laxative 5 mg oral delayed release tablet 2 tabs, Oral, Daily, 0 Refill(s) Start Date: 04/10/14 Status: Ordered gabapentin 300 mg oral capsule 300 mg 1 caps, Oral, Daily, # 60 caps, 0 Refill(s), other reason (Rx) Start Date: 06/10/16 Status: Ordered lisinopril 20 mg oral tablet See Instructions, TAKE ONE HALF TABLET BY MOUTH ONCE DAILY, # 30 tabs, 2 Refill( s), eRx: [facility], TAKE ONE TABLET BY MOUTH ONCE DAILY Start Date: 04/12/16 Status: Ordered MiraLax oral powder for reconstitution 17 g, Oral, Daily, 0 Refill(s) Start Date: 01/23/15 Status: Ordered OXcarbazepine 300 mg oral tablet 300 mg 1 tabs, Oral, BID, # 60 tabs, 0 Refill(s), Pharmacy: [facility], 1 tabs Oral BID Start Date: 04/06/16 Status: Ordered pravastatin 20 mg oral tablet See Instructions, TAKE ONE TABLET BY MOUTH ONCE DAILY AT BEDTIME, # 30 tabs, 2 Refill(s), eRx: [facility], TAKE ONE TABLET BY MOUTH ONCE DAILY AT BEDTIME Start Date: 07/05/16 Status: Ordered Senna Plus 50 mg-8.6 mg oral tablet 2 tabs, Oral, BID, 0 Refill(s) Start Date: 01/15/16 Status: Ordered Results No data available for this section Immunizations Vaccine Date Refusal Reason influenza virus vaccine, inactivated 08/03/16 influenza virus vaccine, inactivated 09/16/15 influenza virus vaccine, live 09/25/12 pneumococcal 13-valent conjugate vaccine 08/14/14 pneumococcal 23-polyvalent vaccine 02/23/99 tetanus-diphth toxoids (Td) adult/adol 05/25/10 tetanus-diphth toxoids (Td) adult/adol 10/28/99 zoster vaccine live 08/15/08 Procedures Procedure Date Related Diagnosis Body Site [...] Patient Education Author: Duncan Jane MD Date: 08/03 Dentistry Dental Abscess A dental abscess is a collection of infected fluid (pus) from a bacterial infection in the inner part of the tooth (pulp). It usually occurs at the end of the tooth's root. CAUSES Severe tooth decay. Trauma to the tooth that allows bacteria to enter into the pulp, such as a broken or chipped tooth. SYMPTOMS Severe pain in and around the infected tooth. Swelling and redness around the abscessed tooth or in the mouth or face. Tenderness. Pus drainage. Bad breath. Bitter taste in the mouth. Difficulty swallowing. Difficulty opening the mouth. Nausea. Vomiting. Chills. Swollen neck glands. DIAGNOSIS A medical and dental history will be taken. An examination will be performed by tapping on the abscessed tooth. X-rays may be taken of the tooth to identify the abscess. TREATMENT The goal of treatment is to eliminate the infection. You may be prescribed antibiotic medicine to stop the infection from spreading. A root canal may be performed to save the tooth. If the tooth cannot be saved, it may be pulled ( extracted) and the abscess may be drained. HOME CARE INSTRUCTIONS Only take [id number] or prescription medicines for pain, fever, or discomfort as directed by your caregiver. Rinse your mouth (gargle) often with salt water ( tsp salt in 8 oz [ 250 ml] of warm water) to relieve pain or swelling. Do not drive after taking pain medicine (narcotics). Do not apply heat to the outside of your face. Return to your dentist for further treatment as directed. SEEK MEDICAL CARE IF: Your pain is not helped by medicine. Your pain is getting worse instead of better. SEEK IMMEDIATE MEDICAL CARE IF: You have a fever or persistent symptoms for more than 23 days. You have a fever and your symptoms suddenly get worse. You have chills or a very bad headache. You have problems breathing or swallowing. You have trouble opening your mouth. You have swelling in the neck or around the eye. This information is not intended to replace advice given to you by your health care provider. Make sure you discuss any questions you have with your health care provider. Document Released: 10/24/2006 Document Revised: 07/18/2013 Document Reviewed: [facility] Patient Information 2016 [employer]. No follow up information was provided. Extracted from: Title: Male HTN, and other problems Author: Duncan Jane MD Date: 08/03 Impression and Plan Diagnosis CAD (coronary artery disease) (IXL90-UB I25.10, Discharge, Medical). Lumbago (RER62-PB M54.5, Discharge, Medical). Need for influenza vaccination (TCP32-IP Z23, Discharge, Medical). Dental abscess (TIS20-PM K04.7, Discharge, Medical). Periodontal disease (WRJ68-PN K05.6, Discharge, Medical). Parkinson's disease (AWH68-NE G20, Discharge, Medical). Benign essential hypertension (UPI75-IZ I10, Discharge, Medical). Plan: 1) Schedule your dental extraction with Dr. Muller. 2) Take the Amoxicillin for your dental abscess. 3) Stay on your other meds, although you may reduce your Gabapentin as desired. 4) Call Dr. Landeros to discuss when he can go off the Plavix and aspirin, but don't delay the dental extraction. 5) See me in 4 months and as needed. 6) Flu shot given today. 7) Don't have your spinal stimulator removed unless it bothers you.. Orders Orders (Selected) Outpatient Orders Completed influenza virus vaccine, inactivated: 0.5 mL, IntraMuscular, Once Order Office Visit Level 5 Est 91637: Prescriptions Prescribed amoxicillin 500 mg oral capsule: 500 mg=1 caps, Oral, TID, for 10 days, 30 caps , 0 Refill(s). Dx/Order Association Plan: Diagnosis: Benign essential hypertension Comment: Ordered: Office Visit Level 5 Est 60705; 08/03/16 16:30:00 CDT, Dental abscess | Periodontal disease | CAD (coronary artery disease) | Benign essential hypertension | Lumbago | Parkinson's disease | Need for influenza vaccination Diagnosis: CAD (coronary artery disease) Comment: Ordered: Office Visit Level 5 Est 58318; 08/03/16 16:30:00 CDT, Dental abscess | Periodontal disease | CAD (coronary artery disease) | Benign essential hypertension | Lumbago | Parkinson's disease | Need for influenza vaccination Diagnosis: Dental abscess Comment: Ordered: Office Visit Level 5 Est 84839; 08/03/16 16:30:00 CDT, Dental abscess | Periodontal disease | CAD (coronary artery disease) | Benign essential hypertension | Lumbago | Parkinson's disease | Need for influenza vaccination Diagnosis: Lumbago Comment: Ordered: Office Visit Level 5 Est 35080; 08/03/16 16:30:00 CDT, Dental abscess | Periodontal disease | CAD (coronary artery disease) | Benign essential hypertension | Lumbago | Parkinson's disease | Need for influenza vaccination Diagnosis: Need for influenza vaccination Comment: Ordered: Office Visit Level 5 Est 53847; 08/03/16 16:30:00 CDT, Dental abscess | Periodontal disease | CAD (coronary artery disease) | Benign essential hypertension | Lumbago | Parkinson's disease | Need for influenza vaccination Other status: influenza virus vaccine, inactivated; 0.5 mL, IntraMuscular, Once, First Dose: 08/03/16 8:31:00 CDT, Stop Date: 08/03/16 8:31: 00 CDT (Completed) Diagnosis: Parkinson's disease Comment: Ordered: Office Visit Level 5 Est 10661; 08/03/16 16:30:00 CDT, Dental abscess | Periodontal disease | CAD (coronary artery disease) | Benign essential hypertension | Lumbago | Parkinson's disease | Need for influenza vaccination Diagnosis: Periodontal disease Comment: Ordered: Office Visit Level 5 Est 83580; 08/03/16 16:30:00 CDT, Dental abscess | Periodontal disease | CAD (coronary artery disease) | Benign essential hypertension | Lumbago | Parkinson's disease | Need for influenza vaccination Additional Orders: Comment: Ordered: amoxicillin 500 mg oral capsule,500 mg 1 caps, Oral, TID, X 10 days, # 30 caps, 0 Refill(s), Pharmacy: [facility], 1 caps Oral TID,x10 days End of Orders ."
--- OUTSIDE RECORDS SUMMARY | 2017-01-27 14:14 | XMS REPORT | Continuity of Care Document ---
Author Author [facility] Organization [facility] Address Unknown Phone Unavailable Support Name Relationship Address Phone ANGELA BEAL MD Caregiver [address] [facility] [place] [address] Unavailable MARLO QUIROGA MD Caregiver [address] [place] [address] [place] [address] Unavailable CARLOS MCLEAN Next Of Kin [address] [place] [address] Insurance Providers Guarantor Dm Mclean Address [address] [place] [address] Email [email or web address]ayer [employer] Policy Number [id number] Subscriber's Name DeannaDm Myriam Relationship 18 Self Group Number [id number] Effective Date 06 Payer Medicare Policy Number [id number] Subscriber's Name Dm Mclean Relationship 18 Self Effective Date 94 Chief Complaint and Reason for Visit Chief Complaint General Reason for Visit [id number] Problems Active Problems Medical Problem Onset Date Status BPH (benign prostatic hypertrophy) Unknown Chronic CAD (coronary artery disease) Unknown Acute Chronic back pain Unknown Chronic Constipation Unknown Chronic Decubitus skin ulcer Unknown Chronic Dyslipidemia Unknown Chronic Elevated troponin I level Unknown Acute Gait instability Unknown Acute General weakness Unknown Acute HTN (hypertension) Unknown Chronic Headache Unknown Acute Hypercholesteremia Unknown Chronic Intractable nausea and vomiting Unknown Acute Low back pain Unknown Acute Low back pain Unknown Acute NSTEMI (non-ST elevated myocardial infarction) Unknown Acute Nausea & vomiting Unknown Acute Nausea & vomiting Unknown Acute Nausea & vomiting Unknown Acute Osteoarthritis Unknown Chronic Parkinson disease Unknown Chronic Syncope Unknown Acute Total bilirubin, elevated Unknown Acute Past Problems Medical Problem Onset Date Gum hemorrhage Unknown Medications Current Home Medications Medication Dose Units Route Directions Days Qty Instructions Start Date Aspirin 81 Mg Tab.chew 81 Mg Oral Daily 12/02/15 Bisacodyl 5 Mg Tablet.dr 10 Mg Oral Daily 12/02/15 Carbidopa/Levodopa (Carbidopa-Levodopa 25-250 Tab) 1 Each Tablet 1 Tab Oral Four Times Daily/Empty Stomach 12/02/15 Carboxymethylcellulose Sodium (Refresh Tears) 15 Ml Drops 1 Drop Both Eyes Daily 12/02/15 Clopidogrel Bisulfate (Plavix) 75 Mg Tablet 75 Mg Oral Daily 30 Days 12/06/15 Docusate Sodium 100 Mg Capsule 400 Mg Oral Daily as needed for Constipation 12/02/15 Gabapentin 300 Mg Capsule 300 Mg Oral Three Times A Day 12/02/15 Lisinopril (Prinivil) 20 Mg Tablet 20 Mg Oral Daily 30 Days Metoprolol Succinate 25 Mg Tab.sr.24h 12.5 Mg Oral Daily 07/16/09 Multivitamin (Multi-Day Vitamins) 1 Each Tablet 1 Tab Oral Daily 02/15/16 Oxcarbazepine 300 Mg Tablet 300 Mg Oral Twice A Day 12/02/15 Polyethylene Glycol 3350 (Miralax) 17 Gm Powd.pack 17 G Oral Daily 12/02/15 Pravastatin Sodium 20 Mg Tablet 20 Mg Oral Bedtime 12/02/15 Sennosides (Senna) 8.6 Mg Tablet 8.6 Mg Oral Bedtime 12/02/15 Vitamin B Complex 1 Each Tablet 1 Tab Oral Daily 02/15/16 Past Home Medications Medication Directions Ordered Status Clopidogrel Bisulfate (Plavix) 75 Mg Tablet, 75 Mg Oral Daily 12/06/15 Discontinued Social History Social History Problem Response Recorded Date/Time Onset Date Status Chewing Tobacco Status No 08/01/2016 9:37pm Not Applicable Not Applicable Hx Substance Use No 08/01/2016 9:37pm Not Applicable Not Applicable Hx Alcohol Use No 08/01/2016 9:37pm Not Applicable Not Applicable Has the pt used tobacco in the last 12 months No 12/02/2015 1:18pm Not Applicable Not Applicable Tobacco Usage none 12/02/2015 2:01pm Not Applicable Not Applicable Query Response Start Date Stop Date Smoking Status Never smoker Hospital Discharge Instructions No hospital discharge instructions. Plan of Care Discharge Date 08/01/16 10:10pm Disposition 01 DISCHARGED HOME, SELF-CARE Condition at Discharge Improved Instructions/Education Provided ED Dental Follow-up Prescriptions See Medication Section Referrals MARLO QUIROGA MD Address: [address] [place] [address] [place] [phone] Additional Instructions/Education See your dentist as soon as possible for evaluation of multiple tooth. Return to ER if bleeding worsens. Care Plan and Goals Physician Care Plan Problem: Dental gum hemorrhage Goal: Follow up with primary care provider Instructions: Take medications and follow care plan as discussed/written See your dentist as soon as possible for evaluation of multiple tooth. Return to ER if bleeding worsens. Functional Status No functional status results. Allergies, Adverse Reactions, Alerts Allergen Type Severity Reaction Status Last Updated warfarin sodium Allergy Unknown NAUSEA Active 08/01/16 Immunizations Query Response on File Recorded Date/Time Hx Influenza Vaccination Y AUGUST 2014 12/02/15 1:18pm Hx Pneumococcal Vaccination Y "SEVERAL YEARS AGO" 12/02/15 1:18pm Hx Influenza Vaccination Y AUGUST 2014 12/02/15 1:18pm Influenza Vaccine Hx aug 2014 08/01/16 9:37pm Vital Signs Acute Vital Signs Vital Response Date/Time Temperature (Fahrenheit) 97.4 deg F (96.8 - 99.1) 08/01/2016 9:00pm Temperature (Calculated Celsius) 36.16857 degrees C (36.0 - 37.3) 08/01/2016 9:00pm Pulse Rate (adult) 68 bpm (60 - 100) 08/01/2016 9:00pm Respiratory Rate 18 breaths/min (10 - 20) 08/01/2016 9:00pm O2 Sat by Pulse Oximetry 96 % (90 - 100) 08/01/2016 9:00pm Blood Pressure 172/79 mm Hg 08/01/2016 9:00pm Height (Feet) 6 feet 08/01/2016 9:00pm Height (Inches) 1.00 inches 08/01/2016 9:00pm Weight (Kilograms) 76.000 kg 08/01/2016 9:00pm Body Mass Index (BMI) 22.0 08/01/2016 9:00pm Results No known relevant diagnostic tests, laboratory data and/or discharge summary. Procedures No known history of procedures. Encounters Encounter Location Arrival/Admit Date Discharge/Depart Date Attending Provider Departed Emergency Room [facility] 08/01/16 8:58pm 08/01/16 10: 10pm ANGELA BEAL MD Recent Diagnosis
--- OUTSIDE RECORDS SUMMARY | 2017-01-27 14:14 | XMS REPORT | Referral Summary ---
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 Role Phone Luly Jane Primary Care Physician [phone] Encounter [facility] Date(s): 11/17/16 - 11/17/16 [facility] [address] [place] [address] [place] [address] Discharge Diagnosis: Macular degeneration Discharge Diagnosis: Coronary heart disease Discharge Diagnosis: Essential hypertension Discharge Diagnosis: Hypercholesteremia Discharge Diagnosis: H/O coronary artery bypass surgery Discharge Disposition: 01-Home or Self Care Attending Physician: Jarrett Jacobs MD Admitting Physician: Jarrett Jacobs MD Referring Physician: Duncan Jane MD Vital Signs Most recent to 1 oldest [Reference Range]: Peripheral Pulse 56 bpm Rate [60-100 bpm] *LOW* (11/17/16 3:48 PM) Blood Pressure 144/54 mmHg [90-140/60-90 mmHg] *HI* (11/17/16 3:48 PM) Problem List Condition Effective Dates Status Health [...] QID, # 360 tabs, 0 Refill(s), Pharmacy: [id number] Start Date: 10/11/16 Status: Ordered clopidogrel 75 mg oral tablet 75 mg 1 tabs, Oral, Daily, # 30 tabs, 1 Refill(s), Pharmacy: [facility], 1 tabs Oral Daily Start Date: 11/17/16 Status: Ordered Dulcolax Laxative 2 tabs, Oral, Daily, 0 Refill(s) Start Date: 06/10/16 Status: Ordered Dulcolax Laxative 5 mg oral delayed release tablet 2 tabs, Oral, Daily, 0 Refill(s) Start Date: 04/10/14 Status: Ordered gabapentin 300 mg oral capsule 300 mg 1 caps, Oral, Bedtime (once a day), # 30 caps, 1 Refill(s), Pharmacy: [facility], 1 caps Oral Bedtime (once a day) Start Date: 10/25/16 Status: Ordered lisinopril 10 mg oral tablet 10 mg 1 tabs, Oral, Daily, # 30 tabs, 1 Refill(s), Pharmacy: [facility], cancel lisinopril 20 mg, 1 tabs Oral Daily Start Date: 10/22/16 Status: Ordered MiraLax oral powder for reconstitution 17 g, Oral, Daily, 0 Refill(s) Start Date: 01/23/15 Status: Ordered OXcarbazepine 300 mg oral tablet 300 mg 1 tabs, Oral, BID, # 60 tabs, 0 Refill(s), Pharmacy: [facility], 1 tabs Oral BID Start Date: 04/06/16 Status: Ordered pravastatin 20 mg oral tablet 20 mg 1 tabs, Oral, Bedtime (once a day), 1/2 tab q day, # 30 tabs, 0 Refill(s) , Pharmacy: [facility] Start Date: 11/11/16 Status: Ordered [...] smoker Assessment and Plan Extracted from: Title: Office Visit Note Author: Jarrett Jacobs MD Date: 11/17/16 Assessment/Plan 1.Coronary heart disease 2.H/O coronary artery bypass surgery 3.Essential hypertension 4.Hypercholesteremia 5.Macular degeneration Discussion: Clearlythe patient is very impairedanddiscouragedand has multiple systemsthat are in a state of disability. I didn't make any changes in his therapy. I advisedthe patient and his wifeto use what works. I encouraged him to userecorded books. Iadvised a follow-up visitpartly in order totry to sustainhis confidence. We active listenedto his concerns and frustrations. Clearlypalliative optionsareappropriate at this point. He and his family and his physician seem to beaware of his preferences.
[2017-01-27] MEDS ORDERED: SENN1TAB79 PO (14:17)
[2017-01-27] MEDS ORDERED: BISA-72 PO (14:17)
[2017-01-27] MEDS ORDERED: LISI10TA7 PO (14:20)
[2017-01-27] MEDS ORDERED: CLOP75TA33 PO (14:20)
--- NOTE | 2017-01-27 14:23 | NUR ---
ROCKY REINA IN ROOM WITH PT
--- NOTE | 2017-01-27 14:35 | ERPDOC ---
Departure Disposition Decision Date: Jan 27, 2017 Disposition Decision Time: 17:13 (LEDA MAHARAJ APRN) Disposition: 01 DISCHARGED HOME, SELF-CARE Impression Impression (LEDA MAHARAJ APRN) Impression: Primary Impression: Head injury Encounter type: initial encounter Qualified Codes: S09.90XA - Unspecified injury of head, initial encounter Additional Impression: Maxillary sinus fracture Encounter type: initial encounter Fracture type: closed Qualified Codes: S02.401A - Maxillary fracture, unspecified side, initial encounter for closed fracture Severity: Moderate (LEDA MAHARAJ APRN) Condition: Stable Seen By: Mid-level only (LEDA MAHARAJ APRN) Referrals: MARLO QUIROGA MD (Family) Patient Instructions: Facial Fracture (ED), Head Injury (ED) Problems/Meds/Labs Reviewed?: Yes Medications reviewed and manag: Yes (LEDA MAHARAJ APRN) Additional Instructions: You have several maxillary sinus fractures from you fall. I did call and speak with Dr. Harrell who is a maxillofacial surgeon. He will see you in follow up in clinic next week. Call his office at [phone] to schedule this appointment. Do not blow your nose. You may want to eat softer foods over the next few days for comfort. May use Ridgely as needed for pain. Return to Er with any issues/ concerns. The swelling on the left eye should go down over the next few days. May wash your laceration daily with soap and water. Have your sutures removed in 7 days with your primary care provider. Follow up care ordered?: Yes Mental Status: Alert (LEDA MAHARAJ APRN) Scripts Amoxicillin/Potassium Clav (Augmentin 875-125 Tablet) 1 Each Tablet 1 TAB PO BID, #20 TAB 0 Refills TAKE WITH MEALS Prov: LEDA MAHARAJ APRN 01/27/17 Hydrocodone/Acetaminophen (Ridgely 5-325 Tablet) 5-325 Tablet 1 TAB PO Q6H Y for PAIN, #15 TAB 0 Refills Prov: LEDA MAHARAJ APRN 01/27/17 HPI - Fall/Injury General Chief Complaint: Fall Stated Complaint: FALL/HIT HEAD-LAC Time Seen by Provider: 14:26 Source: patient Exam Limitations: no limitations (NOLD,LEDA N [employer]) Time Seen by Provider: 14:26 (KRYSTA ESCOTO DO) HPI - Fall/Injury Initial Comments He was at home today and was walking outside. He lost his balance and fell on his left side. There was a worker outside who saw him and came to his aid. He is unsure if he had LOC but thinks that he may have had brief LOC. He denies any symptoms currently aside from a mild headache and some left shoulder pain. He also has a small abrasion on the distal left index finger. Take Plavix and ASA daily. Arrives per EMS with C collar in place. Occurred At: home Onset: Rapid Duration: 1 hr Severity: moderate Injuries/Pain Location: head, face, upper extremity (left shoulder) 1 - area of laceration 2 - swelling and abrasion Context: lost balance Loss of Consciousness: brief (seconds) (possibly) Associated Symptoms: DENIES: abdominal pain, chest pain, confusion, dizziness, headache, lightheadedness, muscle spasms, nausea/vomiting, neck pain, ringing in ears, seizures, shortness of breath, slurred speech, trouble walking, vision changes Hx of Similar Symptoms: No (NOLD,LEDA N [employer]) Allergies: Coded Allergies: warfarin sodium (Verified Allergy, Unknown, NAUSEA, 01/27/17) Past History Patient Surgical History CABG x 3 in 1997. TURP. Spinal stimulator implant by Dr. Aburto - 01/15/15. Currently inactive. (NOLD,LEDA N [employer]) Past Medical History Metabolic: hypercholesterolemia, hypertension Cardiac: CAD, [place] Musculoskeletal: back pain (NOLD,LEDA N [employer]) Surgical History General: other Cardiac: cardiac bypass, cardiac cath Reproductive/: TURP (NOLD,LEDA N [employer]) Family History Family PMH: FOUND: other (NOLD,LEDA N [employer]) Vaccines Hx Influenza Vaccination: Yes (AUGUST 2014) Hx Pneumococcal Vaccination: Yes ("SEVERAL YEARS AGO") (NOLD,LEDA N [employer]) Social History Sexuality: female partner, other (NOLD,LEDA N [employer]) Review of Systems Constitutional Constitutional: DENIES: chills, dizziness, fatigue, fever, weakness (NOLD, LEDA N [employer]) Eyes Vision: DENIES: blurring, double vision (NOLD,LEDA N [employer]) ENMT Ears: DENIES: drainage, pain Sinuses: DENIES: congestion, rhinorrhea Mouth/Throat: DENIES: painful swallowing, scratchy throat, sore throat (LEDA MAHARAJ N [employer]) Cardiovascular Cardiac: DENIES: chest pain, orthopnea Rhythm/Rate: DENIES: irregular beat, palpitations (BEKAH MAHARAJA N [employer]) Pulmonary Respiratory: DENIES: cough, dyspnea, sputum, tachypnea (LEDA MAHARAJ N [employer]) GI Upper Abdomen: DENIES: nausea, pain, vomiting Lower Abdomen: DENIES: constipation, diarrhea, pain (NICKO,LEDA N [employer]) Neurological General: headache, DENIES: numbness, tingling, weakness (LEDA MAHARAJ N [employer]) Physical Exam General General Nourishment: well nourished, well developed, appears stated age, no acute distress, adult General Body Habitus: well groomed (LEDA MAHARAJ APRN) Vitals and Pain First Documented Vital Signs Date Time Temp Pulse Resp B/P Pulse Ox O2 Delivery O2 Flow Rate FiO2 01/27/17 14:10 97.6 57 18 169/67 94 01/27/17 15:21 Room Air (KRYSTA ESCOTO DO) Vitals and Pain Weight: Kilograms: Height (feet): 6 Height (inches): 1.00 Triage Pain Scale: (LEDA MAHARAJ APRN) RN VS reviewed by Provider: Yes (LEDA MAHARAJ APRN) Normal Exams: Neck: Full range of motion, without adenopathy, JVD, bruits or thyromegaly Chest/Resp: Clear all cast, with good airflow, and symmetry bilaterally CV: Regular rate and rhythm, without murmur or gallop, Pulses 2+ all extremities, capillary refill, <2 seconds all ext., no pedal edema noted Abdomen: Bowel sounds positive, soft, non-tender, non-distended, no hepatosplenomegaly, masses or bruits noted Lymphatic: No lymphadenopathy, or lymphedema noted Integumentary: No rashes, hives, or bruising noted Neurologic: Patient is alert, and oriented, cranial nerves, motor/sensory/ cerebellar, exams w/o gross deficits, to observation Psychiatric: Patient exhibits, appropriate attention, emotion and affect (NOLD,LEDA N [employer]) Eyes (brief) Eyes Brief: found: EOMI, PERRL (NOLD,LEDA N [employer]) ENMT (brief) ENMT Brief: FOUND: TM clear, TM good light reflex, ear canals clear, mucosa moist, normal dentition, normal tonsils, NOT FOUND: nasal erythema, nasal exudate, nasal swelling, pharnyx erythema, tonsillar deviation (NOLD,LEDA N [employer]) Musculoskeletal (brief) Musculoskeletal Brief: FOUND: tenderness (Mild TTP along the left shoulder, anterior to palpation.), NOT FOUND: deformity (NOLD,LEDA N [employer]) Integumentary (brief) Integumentary Brief: FOUND: other (He has a laceraton on the left eyebrown region with mild oozing noted. , noted small abrasion on the left distal fingertip) (NOLD,LEDA N [employer]) Differential Diagnoses Considering: Abrasion, Concussion, Contusion, Dislocation, Fracture, Sprain, Strain, Subdural Hematoma (NOLD,LEDA N [employer]) Procedures Procedures Performed Procedures Performed: Laceration Repair (NOLD,LEDA N [employer]) Laceration/Wound Repair Wound/Laceration Repair : Wound Location: face Wound Length (cm): 3 Depth, Shape: subcutaneous, linear Explored: clean Irrigated: saline Prep: chlorasept Anesthesia: 1% Lidocaine c Epi Volume Anesthetic (ccs): 1 Repaired With: Sutures Suture Size: 5:0 Suture Type: prolene Number of Sutures: 12 (NOLD,LEDA N [employer]) Progress Results/Orders Orders Procedure Category Date Status Time Ct Head W/O Contrast CT 01/27/[address] Cervical Spine W/O CT 01/27/17 Resulted Contrast Lidocaine 1% / Epi PHA 01/27/17 Complete 1:100,000 (Xylocaine 14:45 Shoulder Left 2-3 RAD 01/27/[address] Maxillofacial W/O CT 01/27/17 Resulted Contrast (KRYSTA ESCOTO DO) Medications Current ED Medications Lidocaine/ Epinephrine (Xylocaine 1%/ Epi 1:100,000) 20 ml O ONCE SQ Last administered on 01/27/17t 17:22; Start 01/27/17 at 14:45; Stop 01/27/17 at 14:46 ; Status DC (KRYSTA ESCOTO DO) Progress Progress I did call and speak with Dr Toney with maxillofacial surgery in [place]. Discussed findings on CT scan. He will see patient in follow up next week in clinic. Will go ahead and let him go home today. Ridgely for pain and will start him on some antibiotics due to the blood in the sinus cavity. Sinus precautions were given. Return to Er with any further concerns. (LEDA MAHARAJ APRN) Xray Xray : Reason for Exam: left shoulder pain Xray: Shoulder L Interpretation: Normal (LEDA MAHARAJ APRN) CT CT #1: Reason for Exam: head injury CT: Head no contrast Interpretation: Abnormal (Left maxillary sinus fracture) CT #2: Reason for Exam: fall, neck pain CT: C-Spine no contrast Interpretation: Normal CT #3: Reason for Exam: fall facial fracture CT: Other (maxillofacial-no contrast) Interpretation: Abnormal (left maxillary sinus fracture-posterior superior aspect and posterior lateral (nondisplaced), left lateral pterygoid fracture- nondisplaced, fluid and blood in left maxillary sinus) (LEDA MAHARAJ APRN) LEDA MAHARAJ APRN Jan 27, 2017 14:35 KRYSTA ESCOTO DO Jan 28, 2017 07:20
[2017-01-27] MEDS ORDERED: LIDOCAINE 1%/EPI 1:100,000 20ml MDV SQ ONE (14:45)
--- OUTSIDE RECORDS SUMMARY | 2017-01-27 14:48 | XMS REPORT | Continuity of Care Document ---
Author Author [facility] Organization [facility] Address Unknown Phone Unavailable Support Name Relationship Address Phone DAO BAIN DO Caregiver [address] [place] [phone] MARAL COLLADO MD Caregiver [address] [place] [address] [place] [address] MARLO QUIROGA MD Caregiver [address] [place] [address] [place] [phone] CARLOS MCLEAN Next Of Kin [address] [place] [address] Insurance Providers Payer Name Policy Number Subscriber Name Relationship Medicare [id number] Dm Mclean 17 Self [place] [employer] [place] [id number] Dm Mclean 17 Self Advance Directives Directive [...] words): "NAUSEA, HEADACHE, AND CHILLS" Discharge Diet: [place] diet-increase as able Discharge Activity: As tolerated [...] have difficulty breathing. During office hours, call [phone]. After hours, please call [facility] at [phone] and have the plastics spreading machine operator page Dr. Arvizu or the covering [...] F (96.8 - 99.1) Temperature (Calculated Celsius) 36.30083 degrees C (36.0 - 37.3) Pulse Rate [...] 11, 2011 10:43am LAB TEST FORM REQUEST [id number] - Lipase January 20, 2015 1:05am 45 [...] Has specimen been collected/obtained? Y Urine Specific [place] January 20, 2015 3:17am 1.025 - Has [...] N 4.5-11.0 Name: DM MCLEAN Unit #: [id number] : 1930 Sex: M Loc / Svc: SRG DOS: 01/19/15 Signed Report #: [id number] DIAGNOSTIC IMAGING REPORT TYPE OF EXAM: KUB [...] procedures. Encounters Encounter Location Date/Time Admitted Inpatient [facility] 01/20/15 5:20am Departed Emergency Room [facility] 01/18/15 3:09pm Recent Diagnosis Nausea & vomiting Parkinson disease Chronic back pain Total bilirubin, elevated Intractable nausea and vomiting Gait instability HTN (hypertension) CAD (coronary artery disease) Dyslipidemia Constipation
--- OUTSIDE RECORDS SUMMARY | 2017-01-27 14:50 | XMS REPORT | Continuity of Care Document ---
Author Author [facility] Organization [facility] Address Unknown Phone Unavailable Support Name Relationship Address Phone MARLO QUIROGA MD Caregiver [address] [place] [phone] SISI DE JESUS MD Caregiver [address] [place] [phone] CARLOS MCLEAN Next Of Kin [address] [facility] [place] [address] Insurance Providers Payer Name Policy Number Subscriber Name Relationship Medicare [id number] Dm Mclean 17 Self [place] [employer] [place] [id number] Dm Mclean 17 Self Advance Directives Directive [...] F (96.8 - 99.1) Temperature (Calculated Celsius) 36.82551 degrees C (36.0 - 37.3) Pulse Rate [...] 11, 2011 10:43am LAB TEST FORM REQUEST [id number] - Procedures No known history of procedures. Encounters Encounter Location Date/Time Departed Emergency Room [facility] 01/18/15 3:09pm Recent Diagnosis
--- OUTSIDE RECORDS SUMMARY | 2017-01-27 14:50 | XMS REPORT | Continuity of Care Document ---
Author Author [facility] Organization [facility] Address Unknown Phone Unavailable Support Name Relationship Address Phone DAO BAIN Caregiver [facility] [address] [address] MARLO QUIROGA MD Caregiver [address] [place] [address] [place] [phone] CARLOS MCLEAN Next Of Kin [address] [place] [address] Insurance Providers Payer Name Policy Number Subscriber Name Relationship Medicare [id number] Dm Mclean 17 Self [place] [employer] [place] [id number] Dm Mclean 17 Self Advance Directives Directive [...] words): "NAUSEA, HEADACHE, AND CHILLS" Discharge Diet: [place] diet-increase as able Discharge Activity: As tolerated [...] Date 01/21/15 1:55pm Disposition 02 TO OBS [facility] Condition at Discharge Improved Instructions/Education Provided [...] F (96.8 - 99.1) Temperature (Calculated Celsius) 36.52407 degrees C (36.0 - 37.3) Pulse Rate [...] 11, 2011 10:43am LAB TEST FORM REQUEST [id number] - Lipase January 20, 2015 1:05am 44 [...] Has specimen been collected/obtained? Y Urine Specific [place] January 25, 2015 5:47am 1.010 L - [...] N 4.5-11.0 Name: DM MCLEAN Unit #: [id number] : 1930 Sex: M Loc / Svc: SRG DOS: 01/19/15 Signed Report #: [id number] DIAGNOSTIC IMAGING REPORT TYPE OF EXAM: KUB [...] Encounters Encounter Location Date/Time Departed Emergency Room [facility] 01/25/15 5:34am Discharged Inpatient [facility] 01/20/15 5:20am Departed Emergency Room [facility] 01/18/15 3:09pm Recent Diagnosis
--- OUTSIDE RECORDS SUMMARY | 2017-01-27 14:51 | XMS REPORT | Continuity of Care Document ---
Author Author [facility] Organization [facility] Address Unknown Phone Unavailable Allergies Active Description Code Type Severity Reaction Onset Reported/Identified Relationship to Patient Clinical Status Yes Warfarin Sodium NKMA N/A N/A 04/10/2014 Medications Problems Procedures Results Encounters ACCT No. Visit Date/Time Discharge Status Pt. Type Provider Facility Loc./Unit Complaint [id number] 02/05/2014 12:20:00 02/05/2014 23 :59:59 CLS Outpatient [id number] 01/28/2014 14:06:00 01/28/2014 23 :59:59 CLS Outpatient [id number] 01/02/2014 08:17:00 01/02/2014 23 :59:59 CLS Outpatient [id number] 10/02/2013 07:23:00 10/02/2013 23 :59:59 CLS Outpatient
--- NOTE | 2017-01-27 15:17 | DI ---
Indication: ITS.REASON: fall, head injury PROCEDURE: CT HEAD W/O CONTRAST: Encounter: Initial Comparison: December 02, 2015 Technique: Axial CT images through the head were performed without contrast. Iterative Reconstruction dose reducing technique was utilized. FINDINGS: Mild to moderate generalized atrophy. The ventricles are unchanged. There is no evidence of acute intracranial hemorrhage, midline displacement, or mass effect. There are scattered areas of low attenuation in the white matter which most likely represent changes of chronic microvascular ischemia. The CT attenuation of the brain parenchyma is otherwise normal within the cerebellum, brain stem, and cerebral hemispheres. The tympanic cavities and mastoid air cells are free of appreciable disease. There is a mildly displaced fracture of the posterior lateral wall of the left maxillary sinus. Acute hemorrhage in the left maxillary sinus. Left frontal and periorbital soft tissue hematoma extending into the infraorbital region. Prior cataract surgeries. IMPRESSION: 1. Left maxillary sinus fracture. 2. No CT evidence of acute traumatic intracranial hemorrhage. .
--- NOTE | 2017-01-27 15:21 | DI ---
Indication: ITS.REASON: fall, neck pain PROCEDURE: CT CERVICAL SPINE W/O CONTRAST: Encounter: Initial Comparison: None Technique: Axial CT images through the cervical spine were performed without contrast. Coronal and sagittal reformatted images were also obtained. Automated Exposure Control and Iterative Reconstruction dose reducing techniques were utilized. FINDINGS: The alignment of the cervical spine is abnormal with loss of the normal cervical lordosis and grade 1 degenerative anterolisthesis of C4 on C5.. Moderate to severe degenerative changes are present with varying degrees of central spinal canal and neural foraminal stenosis. There is no evidence of acute fracture or subluxation of the cervical spine. The atlantoaxial articulation, dens, and upper cervical spine demonstrate no subluxation. Fracture of the left posterior lateral maxillary sinus wall again seen with hemorrhage in the left maxillary sinus. IMPRESSION: 1. No acute traumatic abnormality of the cervical spine. 2. Left maxillary sinus fracture. .
--- NOTE | 2017-01-27 16:17 | DI ---
Indication: ITS.REASON: FALL, LEFT SHOULDER PAIN PROCEDURE: SHOULDER LEFT 3 VIEWS: Encounter: Initial Comparison: None Findings: There is no acute fracture, dislocation or malalignment identified. Impression: No acute osseous abnormality. .
--- NOTE | 2017-01-27 17:01 | DI ---
Indication: ITS.REASON: facial fractures PROCEDURE: CT MAXILLOFACIAL W/O CONTRAST: Encounter: Initial Comparison: Head CT from earlier today Technique: Axial noncontrast CT images through the mid face were performed with coronal and sagittal two-dimensional reformats. Automated Exposure Control and Iterative Reconstruction dose reducing techniques were utilized. Findings: There is redemonstration of the fracture of the posterior lateral wall of the left maxillary sinus. There is also evidence of a subtle nondisplaced fracture of the left lateral pterygoid plate. There is also a subtle nondisplaced fracture of the posterior superior wall of the left maxillary sinus/orbital floor without depression. There is fluid and blood within the left maxillary sinus. Moderate mucosal thickening in the ethmoid air cells. The globes are intact. Temporomandibular joints are located. There is no significant nasal septal deviation or spurring. No additional acute fracture seen. No dislocation. Impression: Nondisplaced fractures of the left posterior superior and posterior lateral maxillary sinus hassan along with a nondisplaced left lateral pterygoid plate fracture. This does not meet criteria for a LeFort type fracture. .
[2017-01-27] MEDS ORDERED: HYDR-4246 PO (17:16)
[2017-01-27] MEDS ORDERED: AMOX-351 PO (17:18)
[2017-01-27 17:40] VITALS: BP 181/77; PULSE 58; RESP 18; TEMP 97.6; O2SAT 98
== END 2017-01-27 17:40 | disposition home or self-care (01) ==
LOC: ED 14:06
DX: S02.40DA Maxillary fracture, left side, initial encounter for closed fracture (principal); S01.112A Laceration without foreign body of left eyelid and periocular area, initial encounter; S60.411A Abrasion of left index finger, initial encounter; M25.512 Pain in left shoulder; M54.2 Cervicalgia; W01.0XXA Fall on same level from slipping, tripping and stumbling without subsequent striking against object, initial encounter; Y93.01 Activity, walking, marching and hiking; Y92.008 Other place in unspecified non-institutional (private) residence as the place of occurrence of the external cause; Y99.8 Other external cause status